=== PATIENT | male | born 1965 | race Caucasian/White ===

== ENCOUNTER 2016-08-14 17:27 | Inpatient (IN) | payer BC, MEDICAID ==
[~2016-08-14] VITALS: Ht 170.2 cm; Wt 94.1 kg
[~2016-08-14 17:27] MED LIST: ALBU8HFA4 INH; AMIT10TA6 PO; ASPI81TA31 PO; ATOR80TA PO; MESA500C PO; METO25TA6 PO; PANT40TA2 PO; [UNRECOGNIZED DRUG - OTHER]
--- NOTE | 2016-08-14 17:48 | NUR ---
PT IS IN ROOM #1B. DR CASE EVALUATED THE PT.
[2016-08-14 18:15] LABS: BASOPHILS % (AUTO) 0.2 % (0.0-2.0); EOSINOPHILS # (AUTO) 0.1 K/uL (0.0-0.7); EOSINOPHILS % (AUTO) 1.6 % (0.0-7.0); HEMATOCRIT 41.5 % (40.0-50.0); HEMOGLOBIN 13.5 g/dL (14.0-18.0); LYMPHOCYTES # (AUTO) 0.9 K/uL (0.8-4.8); LYMPHOCYTES % (AUTO) 12.7 % (20.5-51.5); MEAN CORPUSCULAR HEMOGLOBIN 27.7 uug (27.0-31.0); MEAN CORPUSCULAR HGB CONC 33 g/dL (32.0-37.0); MONOCYTES # (AUTO) 0.8 K/uL (0.1-1.30); MONOCYTES % (AUTO) 11.2 % (0.0-11.0); NEUTROPHILS # (AUTO) 5.2 K/uL (1.8-8.9); NEUTROPHILS % (AUTO) 74.3 % (38.5-71.5); PLATELET COUNT (AUTO) 338 K/uL (150-450); RED BLOOD CELL COUNT(AUTO) 4.88 MIL/uL (4.70-6.10); RED CELL DISTRIBUTION WIDTH 13.7 % (11.5-14.5)
[2016-08-14 18:20] LABS: CALCIUM 8.9 mg/dL (8.5-10.1); POTASSIUM 5.1 mmol/L (3.5-5.1)
[2016-08-14 18:26] LABS: ALBUMIN 3.5 g/dL (3.4-5.0); BILIRUBIN,TOTAL 0.3 mg/dL (0.2-1.0); TOTAL PROTEIN, SERUM 7.9 g/dL (6.4-8.2)
[2016-08-14] MEDS ORDERED: HYDROMORPHONE 1 MG/1 ML DISP.SYRIN IV ONE ×2 (18:45→20:15)
[2016-08-14] MEDS ORDERED: ONDANSETRON 4 MG/2 ML VIAL IV ONE (18:45)
[2016-08-14] MEDS ORDERED: KETOROLAC TROMETHAMINE 15 MG INJ IV ONE (18:45)
[2016-08-14] MEDS ORDERED: KETOROLAC TROMETHAMINE 15 MG INJ ONE (19:04)
[2016-08-14] MEDS ORDERED: HYDROMORPHONE 1 MG/1 ML DISP.SYRIN ONE ×2 (19:04→20:25)
[2016-08-14] MEDS ORDERED: ONDANSETRON 4 MG/2 ML VIAL ONE (19:05)
--- NOTE | 2016-08-14 19:17 | NUR ---
DAYSHIFT NURSE ENDORSED CARE... PT IN BED RESTING WITH DAUGHTER AT SIDE... PT IS ALERT, ORIENTED X 4, NO RESP DISTRESS NOTED OR REPORTED UPON ASSESSMENT... WILL CONTINUE TO MONITOR FOR SAFETY, COMFORT AND PAIN...
--- NOTE | 2016-08-14 20:38 | NUR ---
Pt. admitted to tele , under care of Dr. Rowan, [place] List completed, pt is alert, oriented x 4, no resp distress noted or reported upon transfer assessment... pt transferred via gurney...
[2016-08-14 21:07] VITALS: BP 155/94
[2016-08-14] MEDS ORDERED: METOPROLOL TARTRATE 25 MG TABLET PO SCH (21:30)
[2016-08-14] MEDS ORDERED: MAGNESIUM HYDROXIDE 30 ML LIQUID UDC PO PRN (21:30)
[2016-08-14] MEDS ORDERED: ACETAMINOPHEN 325 MG TABLET PO PRN (21:30)
[2016-08-14] MEDS ORDERED: MESALAMINE 500 MG PO SCH (21:30)
[2016-08-14] MEDS ORDERED: Medication Not On Formulary EA (Atorvastatin Calcium (Lipitor) 80 MG) PO SCH (21:30)
[2016-08-14] MEDS ORDERED: ONDANSETRON 4 MG/2 ML VIAL IV PRN (21:30)
[2016-08-14] MEDS ORDERED: ALBUTEROL SULFATE 2.5 MG/3 ML NEBU NEB PRN (21:30)
[2016-08-14] MEDS ORDERED: NITROGLYCERIN 0.3 MG/TAB BOTTLE SL PRN (21:30)
[2016-08-14 22:56] LABS: *BILIRUBIN,URIN NEGATIVE (NEGATIVE); *BLOOD, URINE NEGATIVE (NEGATIVE); *CLARITY,URINE CLEAR (CLEAR); *COLOR,URINE YELLOW (YELLOW); *KETONES,URINE NEGATIVE (NEGATIVE); *PROTEIN,URINE NEGATIVE (NEGATIVE); *UROBILINOGEN,URINE 0.2 E.U./dl (NORMAL); LEUKOCYTE ESTERASE ,URINE NEGATIVE (NEGATIVE); NITRITE, URINE NEGATIVE (NEGATIVE); UGLUCOSE NEGATIVE (NEGATIVE)
[2016-08-14 23:12] VITALS: BP 127/83
[2016-08-14 23:15] LABS: BACTERIA,URINE FEW /HPF (NONE SEEN); MUCUS,URINE FEW /LPF (0-FEW); RBC,URINE NONE SEEN /HPF (0-3); SQUAMOUS EPITHELIAL CELL,UR FEW /HPF (NONE SEEN); WBC,URINE 0-3 /HPF (0-3)
[2016-08-14] MEDS ORDERED: METOPROLOL TARTRATE 25 MG TABLET ONE (23:18)
[2016-08-14] MEDS: MORPHINE SULFATE 2 MG/1 ML DISP.SYRIN IV PRN (23:22)
[2016-08-14] MEDS ORDERED: MORPHINE SULFATE 2 MG/1 ML DISP.SYRIN ONE (23:25)
[2016-08-15 04:00] VITALS: BP 131/81
[2016-08-15] MEDS: MORPHINE SULFATE 2 MG/1 ML DISP.SYRIN IV PRN ×3 (05:51→17:13)
[2016-08-15] MEDS ORDERED: MORPHINE SULFATE 2 MG/1 ML DISP.SYRIN ONE (05:59)
--- NOTE | 2016-08-15 06:00 | NUR ---
PATIENT ALERT, NO RESPIRATORY DISTRESS. ON TELE MONITOR SINUS RHYTHM. CALL LIGHT WITHIN REACH. WILL CONTINUE TO MONITOR.
[2016-08-15 07:21] LABS: BASOPHILS % (AUTO) 0.3 % (0.0-2.0); EOSINOPHILS # (AUTO) 0.2 K/uL (0.0-0.7); EOSINOPHILS % (AUTO) 2.4 % (0.0-7.0); HEMATOCRIT 38.8 % (40.0-50.0); HEMOGLOBIN 12.6 g/dL (14.0-18.0); LYMPHOCYTES # (AUTO) 0.7 K/uL (0.8-4.8); LYMPHOCYTES % (AUTO) 10.8 % (20.5-51.5); MEAN CORPUSCULAR HEMOGLOBIN 27.6 uug (27.0-31.0); MEAN CORPUSCULAR HGB CONC 33 g/dL (32.0-37.0); MEAN CORPUSCULAR VOLUME 85.2 fL (82.0-92.0); MONOCYTES # (AUTO) 0.9 K/uL (0.1-1.30); NEUTROPHILS # (AUTO) 4.9 K/uL (1.8-8.9); NEUTROPHILS % (AUTO) 73.5 % (38.5-71.5); PLATELET COUNT (AUTO) 306 K/uL (150-450); RED BLOOD CELL COUNT(AUTO) 4.56 MIL/uL (4.70-6.10); RED CELL DISTRIBUTION WIDTH 13.4 % (11.5-14.5); WHITE BLOOD COUNT (AUTO) 6.7 K/uL (4.0-11.2)
[2016-08-15 07:24] LABS: BILIRUBIN,TOTAL 0.1 mg/dL (0.2-1.0); CALCIUM 8.5 mg/dL (8.5-10.1); CREATININE 1.1 mg/dL (0.6-1.3); MAGNESIUM 2.3 mg/dL (1.8-2.4); PHOSPHOROUS 4.5 mg/dL (2.5-4.9); POTASSIUM 4.1 mmol/L (3.5-5.1); TOTAL PROTEIN, SERUM 6.5 g/dL (6.4-8.2)
[2016-08-15 07:33] LABS: THYROID STIMULATING HORMONE 2.397 mIU/mL (0.358-3.740)
--- NOTE | 2016-08-15 08:08 | NUR ---
Awake, alert, oriented x 4. complaining of right sided abdominal pain, /10. Will continue to monitor
[2016-08-15] MEDS: ASPIRIN 81 MG TAB.CHEW PO SCH (08:52)
[2016-08-15] MEDS: METOPROLOL TARTRATE 25 MG TABLET PO SCH ×2 (08:52→20:14)
[2016-08-15] MEDS: PANTOPRAZOLE SODIUM 40 MG TABLET.DR PO SCH ×2 (08:55→17:20)
[2016-08-15] MEDS ORDERED: MESALAMINE 500 MG CAPSULE.SA PO SCH (09:00)
[2016-08-15 11:30] VITALS: BP 122/76
--- NOTE | 2016-08-15 12:49 | NUR ---
Echocardiogram done. Lunch served. Family at bedside
[2016-08-15 15:46] VITALS: BP 117/74
[2016-08-15] MEDS: MESALAMINE 500 MG CAPSULE.SA PO SCH (17:20)
--- NOTE | 2016-08-15 18:29 | NUR ---
Seen and examined by Dr. Latham. Agreed to stay, for CT Abdomen.
[2016-08-15 19:00] VITALS: BP 145/90
[2016-08-15] MEDS: DICYCLOMINE HCL 20 MG TABLET PO SCH (20:13)
[2016-08-15] MEDS ORDERED: MISCELLANEOUS MED PO SCH (21:00)
[2016-08-15] MEDS ORDERED: CARISOPRODOL 350 MG TABLET PO SCH (21:00)
[2016-08-15] MEDS ORDERED: AMITRIPTYLINE HCL 10 MG TABLET PO SCH (21:00)
[2016-08-15] MEDS ORDERED: ATORVASTATIN 40 MG TABLET PO SCH (21:00)
--- NOTE | 2016-08-15 22:00 | NUR ---
PT SIGNED CONSENT FOR CT ABDOMEN/PELVIS WITH CONTRAST TO BE DONE TOMORROW.
[2016-08-16 04:00] VITALS: BP 137/84
--- NOTE | 2016-08-16 06:11 | NUR ---
DISREGARD CT ABDOMEN AND PELVIS DONE ON THIS PT ACCESSION NO. [id number]. ERROR OCCURED IN PROCESSING.
[2016-08-16] MEDS: PANTOPRAZOLE SODIUM 40 MG TABLET.DR PO SCH ×2 (06:17→16:50)
--- NOTE | 2016-08-16 06:24 | NUR ---
END OF SHIFT NOTE: PT SLEPT INTERMITTENTLY. DENIES ANY PAIN. IN NO ACUTE SIGNS OF DISTRESS. ON NPO AFTER MIDNIGHT. SCHEDULED FOR CT ABD/PELVIS WITH CONTRAST IN AM. CONSENT SIGNED BY PT. SAFETY MAINTAINED. CALL LIGHT WITHIN REACH.
[2016-08-16] MEDS ORDERED: BARIUM SULFATE 450 ML ORAL.SUSP ONE (07:05)
[2016-08-16] MEDS ORDERED: IV NORMAL SALINE 250 ML IV ONE (07:05)
[2016-08-16] MEDS ORDERED: IOHEXOL 300MG/ML 100 ML INFUS..BTL ONE (07:05)
[2016-08-16] MEDS: MORPHINE SULFATE 2 MG/1 ML DISP.SYRIN IV PRN (08:15)
[2016-08-16] MEDS ORDERED: CLOPIDOGREL 75 MG TABLET PO SCH (09:00)
[2016-08-16] MEDS ORDERED: BUDESONIDE EC 3 MG CAP.SR.24H PO SCH (09:00)
[2016-08-16] MEDS ORDERED: AMLODIPINE 5 MG TABLET PO SCH (09:00)
[2016-08-16] MEDS ORDERED: MONTELUKAST SODIUM 10 MG TABLET PO SCH (09:00)
[2016-08-16] MEDS: METOPROLOL TARTRATE 25 MG TABLET PO SCH (10:00)
[2016-08-16] MEDS: ASPIRIN 81 MG TAB.CHEW PO SCH (10:00)
[2016-08-16] MEDS: DICYCLOMINE HCL 20 MG TABLET PO SCH ×3 (10:03→16:49)
[2016-08-16] MEDS: MESALAMINE 500 MG CAPSULE.SA PO SCH ×3 (10:03→16:50)
[2016-08-16 11:27] VITALS: BP 136/86
[2016-08-16] MEDS ORDERED: methylPREDNISolone SOD SUCC 40 MG/ML VIAL IV STA (12:52)
[2016-08-16] MEDS ORDERED: HYDROMORPHONE 1 MG/1 ML DISP.SYRIN IV PRN (15:00)
[2016-08-16 16:06] VITALS: BP 125/64
[2016-08-16] MEDS ORDERED: METH4TAB3 PO (17:08)
--- NOTE | 2016-08-16 18:31 | NUR ---
PATIENT BEEN DISCHARGE HOME IN STABLE CONDITION. NO S/S OF DISTRESS NOTED. C/O OF PAIN DURING THE DAY, MEDICATED ORDERED. DISCHARGE INSTRUCTIONS WERE EXPLAINED, SIGNED BY PATIENT. A COPY WAS PROVIDED, WELL PRESCRIPTIONS. ID AND IV CATHETER REMOVED. PATIENT WAS PICKED UP BY DAUGHTER. SAFETY AND COMFORT PROVIDED DURING MY SHIFT. I ACCOMPANIED PATIENT TO HIS PRIVATE CAR. HE REFUSED TO USED A WHEELCHAIR. HE AMBULATED. STEADY GAIT.
== END 2016-08-16 18:20 | disposition home or self-care (01) | DRG 245 ==
LOC: ER 17:27 → MED 20:31 → TELE 21:00 → MED 08-15 17:55
PROVIDERS: ADMIT Internal Medicine; ATTEND Internal Medicine
DX: K50.90 Crohn's disease, unspecified, without complications (principal); K76.0 Fatty (change of) liver, not elsewhere classified; I25.2 Old myocardial infarction; I10 Essential (primary) hypertension; I25.10 Atherosclerotic heart disease of native coronary artery without angina pectoris; J45.909 Unspecified asthma, uncomplicated; Z95.1 Presence of aortocoronary bypass graft; D50.9 Iron deficiency anemia, unspecified; K40.90 Unilateral inguinal hernia, without obstruction or gangrene, not specified as recurrent; R73.03 Prediabetes; R07.9 Chest pain, unspecified
CPT/HCPCS: 36415; 70030-TC; 71010; 83550; 83690; 83735; 84100; 84443; 85025; 85610; 86140; 93005; 93307; A4663; J1170; J1885; J2270; J2405; J2920; J7050; Q9951; Q9967

== ENCOUNTER 2017-05-20 17:14 | Emergency (ER) | payer BC, MEDICAID ==
[~2017-05-20] VITALS: Ht 170.2 cm; Wt 90.7 kg
[~2017-05-20 17:14] MED LIST changes: +METH4TAB3 PO
--- NOTE | 2017-05-20 19:17 | NUR ---
Pt was not found in the ER waiting room.
== END 2017-05-20 19:18 | disposition left against medical advice (07) ==
LOC: ER 17:16
DX: Z53.21 Procedure and treatment not carried out due to patient leaving prior to being seen by health care provider (principal)
CPT/HCPCS: A4663

== ENCOUNTER 2017-07-27 20:04 | Emergency (ER) | payer MEDICAID ==
[~2017-07-27] VITALS: Ht 170.2 cm; Wt 90.7 kg
[2017-07-27] MEDS ORDERED: ONDANSETRON 4 MG/2 ML VIAL IM ONE (21:30)
[2017-07-27] MEDS ORDERED: HYDROMORPHONE 1 MG/1 ML DISP.SYRIN IM ONE (21:30)
[2017-07-27] MEDS ORDERED: ONDANSETRON 4 MG/2 ML VIAL ONE (21:39)
[2017-07-27] MEDS ORDERED: HYDROMORPHONE 4 MG/1 ML DISP.SYRIN ONE (21:41)
[2017-07-27] MEDS ORDERED: LIDOCAINE 5% PATCH TD ONE ×2 (23:45→23:57)
--- NOTE | 2017-07-27 23:45 | NUR ---
Patient discharged to home in stable conditon. Written and verbal after care instructions given. Patient verbalizes understanding of instructions. Patient left with a tolerable level of pain. Patient able to ambulate unassisted with steady gait. Patient left with all personal belongings. Addendum: 07/28/17 at 0133 by JCALLOWAY Instead of waiting for CD with x-ray and ct image Pt wanted a printing of the rad impressions to take home.
[2017-07-28 01:31] VITALS: BP 136/79
== END 2017-07-27 23:45 | disposition home or self-care (01) ==
LOC: ER 20:05
DX: M54.12 Radiculopathy, cervical region (principal); I10 Essential (primary) hypertension; I25.2 Old myocardial infarction; J45.909 Unspecified asthma, uncomplicated; Z95.1 Presence of aortocoronary bypass graft; Z91.040 Latex allergy status; Z91.018 Allergy to other foods; Z79.82 Long term (current) use of aspirin; Z79.899 Other long term (current) drug therapy
CPT/HCPCS: 72125; 73030; 93005; A4663; J1170; J2405

== ENCOUNTER 2019-04-29 18:41 | Emergency (ER) | payer BC, MEDICAID ==
[~2019-04-29] VITALS: Ht 170.2 cm; Wt 93.0 kg
[2019-04-29] MEDS ORDERED: NITROGLYCERIN OINT 1 GM PACKET TP ONE ×2 (18:47→19:00)
[2019-04-29] MEDS ORDERED: ACETAMINOPHEN ES 500 MG TABLET ONE (18:53)
[2019-04-29] MEDS ORDERED: NITROGLYCERIN 0.4 MG/TAB BOTTLE SL ONE ×2 (18:53→19:00)
[2019-04-29] MEDS ORDERED: ADAL40PE SQ (18:56)
--- NOTE | 2019-04-29 18:59 | NUR ---
Pt refused 2nd nitro 0.4mg SL, stating his pain hasn't changed and pain is still 7/10.
--- NOTE | 2019-04-29 18:59 | NUR ---
Dr jay made aware of pt refusal.
[2019-04-29] MEDS ORDERED: ACETAMINOPHEN ES 500 MG TABLET PO ONE (19:00)
[2019-04-29 19:08] LABS: BASOPHILS % (AUTO) 0.6 % (0.0-2.0); EOSINOPHILS # (AUTO) 0.1 K/uL (0.0-0.7); EOSINOPHILS % (AUTO) 1.4 % (0.0-7.0); HEMATOCRIT 42.9 % (36.7-47.1); HEMOGLOBIN 14.6 g/dL (12.5-16.3); LYMPHOCYTES # (AUTO) 1.5 K/uL (20.0-40.0); LYMPHOCYTES % (AUTO) 19.6 % (20.5-51.5); MEAN CORPUSCULAR HEMOGLOBIN 29.5 uug (23.8-33.4); MEAN CORPUSCULAR HGB CONC 34 g/dL (32.5-36.3); MEAN CORPUSCULAR VOLUME 86.8 fL (73.0-96.2); MONOCYTES # (AUTO) 0.9 K/uL (2.0-10.0); MONOCYTES % (AUTO) 11.7 % (0.0-11.0); NEUTROPHILS # (AUTO) 5.2 K/uL (1.8-8.9); NEUTROPHILS % (AUTO) 66.7 % (38.5-71.5); PLATELET COUNT (AUTO) 227 K/uL (152-348); RED BLOOD CELL COUNT(AUTO) 4.94 MIL/uL (4.06-5.63); WHITE BLOOD COUNT (AUTO) 7.8 K/uL (3.6-10.2)
[2019-04-29] MEDS ORDERED: HYDROMORPHONE HCL 2 MG TABLET PO ONE (19:15)
[2019-04-29] MEDS ORDERED: HYDROMORPHONE HCL 2 MG TABLET ONE (19:29)
[2019-04-29 19:34] LABS: CREATININE 1.2 mg/dL (0.6-1.3); POTASSIUM 4.1 mmol/L (3.5-5.1)
[2019-04-29 19:46] LABS: BILIRUBIN,DIRECT 0.1 mg/dL (0.0-0.2); BILIRUBIN,TOTAL 0.3 mg/dL (0.2-1.0); TOTAL PROTEIN, SERUM 7.3 g/dL (6.4-8.2)
[2019-04-29] MEDS ORDERED: METOPROLOL TARTRATE 5 MG/5 ML VIAL IVP ONE ×2 (22:14→22:15)
--- NOTE | 2019-04-29 22:26 | NUR ---
IV removed. Catheter intact and site benign. Pressure and 4x4 gauze applied to site. No bleeding noted.
--- NOTE | 2019-04-29 22:27 | NUR ---
Patient does not wish to proceed with medical care recommended by Dr. Margarita jay ). Patient given information related to possible complications, up to and including , which could occur as a result of leaving the hospital at this time. Patient verbalizes understanding of risks involved due to leaving against medical advice. Patient has signed AMA form.
[2019-04-29 22:28] VITALS: BP 114/75
== END 2019-04-29 22:33 | disposition left against medical advice (07) ==
LOC: ER 18:42
DX: R07.2 Precordial pain (principal); I25.10 Atherosclerotic heart disease of native coronary artery without angina pectoris; I10 Essential (primary) hypertension; I25.2 Old myocardial infarction; J45.909 Unspecified asthma, uncomplicated; Z95.1 Presence of aortocoronary bypass graft; Z91.040 Latex allergy status; Z79.899 Other long term (current) drug therapy; Z79.82 Long term (current) use of aspirin
CPT/HCPCS: 36415; 71045; 80048; 80076; 83880; 84484 ×2; 85025; 85379; 93005; 96374; 99284; J3490; 70030-TC; A4663; A9150

== ENCOUNTER 2019-11-15 19:37 | Emergency (ER) | payer BC ==
[~2019-11-15] VITALS: Ht 170.2 cm; Wt 95.3 kg
[~2019-11-15 19:37] MED LIST changes: +ADAL40PE SQ; -MESA500C PO; -METH4TAB3 PO; -[UNRECOGNIZED DRUG - OTHER]
--- NOTE | 2019-11-15 19:54 | NUR ---
Patient walked in from home with c/o worsening neck pain x 4 days on right side radiating down his right arm. Patient denies any fall, trauma, states that pain came on suddenly. Patient is alert/oriented no distress noted at this time.
--- NOTE | 2019-11-15 20:07 | NUR ---
Dr. Ocasio at bedside for MSE.
[2019-11-15] MEDS ORDERED: MORPHINE SULFATE 4 MG/1 ML DISP.SYRIN IM ONE (20:15)
[2019-11-15] MEDS ORDERED: MORPHINE SULFATE 4 MG/1 ML DISP.SYRIN ONE (20:20)
[2019-11-15 20:31] LABS: BASOPHILS # (AUTO) 0.1 K/uL (0.0-8.0); BASOPHILS % (AUTO) 0.8 % (0.0-2.0); EOSINOPHILS # (AUTO) 0.2 K/uL (0.0-0.7); EOSINOPHILS % (AUTO) 2.6 % (0.0-7.0); LYMPHOCYTES # (AUTO) 1.4 K/uL (20.0-40.0); LYMPHOCYTES % (AUTO) 21.1 % (20.5-51.5); MEAN CORPUSCULAR HEMOGLOBIN 30.4 uug (23.8-33.4); MEAN CORPUSCULAR HGB CONC 34 g/dL (32.5-36.3); MEAN CORPUSCULAR VOLUME 88.8 fL (73.0-96.2); MONOCYTES % (AUTO) 14.8 % (0.0-11.0); NEUTROPHILS % (AUTO) 60.7 % (38.5-71.5); PLATELET COUNT (AUTO) 236 K/uL (152-348); RED BLOOD CELL COUNT(AUTO) 4.28 MIL/uL (4.06-5.63); WHITE BLOOD COUNT (AUTO) 6.6 K/uL (3.6-10.2)
[2019-11-15 20:41] LABS: POTASSIUM 3.8 mmol/L (3.5-5.1)
[2019-11-15] MEDS ORDERED: KETOROLAC TROMETHAMINE 60 MG INJ IM ONE ×2 (21:05→21:15)
[2019-11-15] MEDS ORDERED: predniSONE 20 MG TABLET ONE (22:11)
[2019-11-15] MEDS ORDERED: predniSONE 20 MG TABLET PO ONE (22:15)
[2019-11-15 22:18] VITALS: BP 143/74
--- NOTE | 2019-11-15 22:18 | NUR ---
Patient discharged to home in stable condition. Written and verbal after care instructions given. Patient verbalizes understanding of instructions. Stressed follow up or return to ER for worsening s/s. patient left with stable gait.
== END 2019-11-15 22:19 | disposition home or self-care (01) ==
LOC: ER 19:40
DX: M50.11 Cervical disc disorder with radiculopathy, high cervical region (principal); M62.830 Muscle spasm of back; R20.2 Paresthesia of skin; Z95.1 Presence of aortocoronary bypass graft; Z79.02 Long term (current) use of antithrombotics/antiplatelets; I25.2 Old myocardial infarction; I10 Essential (primary) hypertension; Z95.0 Presence of cardiac pacemaker; K50.90 Crohn's disease, unspecified, without complications; Z91.040 Latex allergy status; Z79.899 Other long term (current) drug therapy; K76.0 Fatty (change of) liver, not elsewhere classified; M51.34 Other intervertebral disc degeneration, thoracic region
CPT/HCPCS: 36415; 71045; 72125; 72128; 80048; 85025; 85730; 96372 ×2; 99285; J1885; J2270; J7512; A4663